=== PATIENT | female | born 1995 | race Two or more races ===

== ENCOUNTER 2017-01-09 18:16 | Emergency (ER) | payer OTHER ==
[~2017-01-09] VITALS: Ht 157.5 cm; Wt 45.5 kg
[2017-01-09] MEDS ORDERED: PROCHLORPERAZINE 5 MG/ML, 2ML ONE (18:57)
[2017-01-09] MEDS ORDERED: PROCHLORPERAZINE 5 MG/ML, 2ML IM ONE (19:00)
[2017-01-09 19:55] VITALS: BP 107/56
== END 2017-01-09 20:46 | disposition home or self-care (01) ==
LOC: ED 19:33
DX: R11.2 Nausea with vomiting, unspecified (principal); F12.10 Cannabis abuse, uncomplicated
CPT/HCPCS: 96372; 99283; J0780